=== PATIENT | female | born 1960 | race Caucasian/White ===

== ENCOUNTER → 2017-10-17 | Outpatient (CLI) | payer BC ==
[~2017-10-17] MED LIST: Calcium Carbonate,Ca PO; DAILY VITE1 EAC1 PO; FROVA2.5 MG PO; INDERAL80 MG PO; Inderal LA PO; Motrin PO; Percocet 5/325,Endoc PO; Theragran PO
== END | disposition home or self-care (01) ==
LOC: CDC 08:13
DX: Z01.810 Encounter for preprocedural cardiovascular examination (principal); N60.91 Unspecified benign mammary dysplasia of right breast
CPT/HCPCS: 93000

== ENCOUNTER 2017-10-31 05:59 | Day surgery (SDC) | payer BC ==
[~2017-10-31] VITALS: Ht 175.3 cm; Wt 82.0 kg
[2017-10-31 07:00] VITALS: BP 134/76
[2017-10-31] MEDS ORDERED: HYDROCODON-ACE1 EAC7 PO (11:00)
[2017-10-31 11:54] VITALS: BP 151/93
[2017-10-31 12:56] VITALS: BP 155/80
== END 2017-10-31 13:04 | disposition home or self-care (01) ==
LOC: SDC 05:59
PROC: 0HBT0ZX Excision of Right Breast, Open Approach, Diagnostic (ICD-10-PCS; principal; 2017-10-31)
DX: N60.21 Fibroadenosis of right breast (principal); N60.01 Solitary cyst of right breast; Z88.0 Allergy status to penicillin
CPT/HCPCS: 88307; J0131; J0330; J1100; J1170; J1885; J2250; J2405; J3010; S0020